=== PATIENT | male | born 1940 | race Caucasian/White ===

== ENCOUNTER 2018-03-30 16:48 | Emergency (ER) | payer MEDICARE, BC ==
--- NOTE | 2018-03-30 17:14 | EDM.PDOC ---
ED HPI GENERAL MEDICAL PROBLEM - General Stated Complaint: FELL Time Seen by Provider: 03/30/18 16:50 Source of Information: Reports: Patient History Limitations: Reports: No Limitations - History of Present Illness INITIAL COMMENTS - FREE TEXT/NARRATIVE: Patient comes into the emergency department with complaint of right rib pain. Patient sustained a fall prior to arrival. He states that he lost his balance on ice fell onto his right side landing on his ribs. He denies hitting any other part of his body. He states that he noted pain and discomfort right away on the right side. He denies having chest pain or shortness of breath, but does state it does hurt to take a deep breath. He denies any dizziness, lightheadedness, abdominal discomfort or loss of bowels. Has full range of motion and his right upper extremity and did not notices any bleeding or ecchymosis. Onset: Today, Sudden Location: Reports: Chest Quality: Reports: Ache, Throbbing Severity: Moderate Improves with: Reports: Rest Worsens with: Reports: Movement Context: Reports: Activity Associated Symptoms: Reports: No Other Symptoms Right Thoracic Pain Score (Numeric/FACES): 10 - Related Data Allergies Allergy/AdvReac Type Severity Reaction Status Date / Time Fjikqfq-Ija-Lwp Reductase Allergy Muscle Verified 03/30/18 17:19 Inhibitor Weakness atorvastatin AdvReac Muscle Verified 03/30/18 17:19 Weakness ezetimibe AdvReac Muscle Verified 03/30/18 17:19 Weakness rosuvastatin AdvReac Muscle Verified 03/30/18 17:19 Weakness Home Meds: Home Meds Metoprolol Tartrate 25 mg PO BID 05/30/13 [History] Aspirin [Halfprin] 81 mg PO DAILY 03/01/14 [History] Omeprazole [Prilosec] 20 mg PO DAILY 03/01/14 [History] NIFEdipine [Nifedipine ER] 30 mg PO DAILY 03/30/18 [History] Past Medical History Other HEENT History: eyelid drooping disease, Other Cardiovascular History: dyastolic dysfunction, Other Gastrointestinal History: hx colon polyps Other Genitourinary History: ed, Other Musculoskeletal History: bilat wrist fracture, Other Endocrine/Metabolic History: hyperglycemia, metabolic syndrome, ED ROS GENERAL - Review of Systems Review Of Systems: See Below Constitutional: Reports: No Symptoms HEENT: Reports: No Symptoms Respiratory: Reports: No Symptoms Cardiovascular: Reports: No Symptoms GI/Abdominal: Reports: No Symptoms Musculoskeletal: Reports: No Symptoms Skin: Reports: No Symptoms Neurological: Reports: No Symptoms ED EXAM, GENERAL - Physical Exam Exam: See Below Exam Limited By: No Limitations General Appearance: Alert, WD/WN, No Apparent Distress Eye Exam: Bilateral Eye: EOMI Head: Atraumatic, Normocephalic Neck: Normal Inspection, Supple, Non-Tender, Full Range of Motion Respiratory/Chest: No Respiratory Distress, Lungs Clear, Normal Breath Sounds, No Accessory Muscle Use, Chest Non-Tender, Other (pain upon palpation of the right lower ribs on the lateral aspect. No deformity, redness, or ecchymosis noted.) Cardiovascular: Normal Peripheral Pulses, Regular Rate, Rhythm Extremities: Normal Inspection, Normal Range of Motion, Non-Tender, Normal Capillary Refill Neurological: Alert, Oriented Psychiatric: Normal Affect, Normal Mood Skin Exam: Warm, Dry, Intact, Normal Color Course - Vital Signs Last Recorded V/S: Last Vital Signs Temp 36.4 C 03/30/18 16:55 Pulse 62 03/30/18 16:55 Resp 16 03/30/18 16:55 BP 195/99 H 03/30/18 16:55 Pulse Ox 99 03/30/18 16:55 Departure - Departure Time of Disposition: 17:51 Disposition: Home, Self-Care 01 Clinical Impression: Contusion of rib on right side Qualifiers: Encounter type: initial encounter Qualified Code(s): S20.211A - Contusion of right front wall of thorax, initial encounter - Discharge Information *PRESCRIPTION DRUG MONITORING PROGRAM REVIEWED*: Not Applicable *COPY OF PRESCRIPTION DRUG MONITORING REPORT IN PATIENT MIREYA: Not Applicable Instructions: Contusion, [id number], Rib Contusion Additional Instructions: 1. rest 2. Use ice to the area 3 times a day for 20 mins at a time 3. Use a pillow to splint if needing to cough 4. Try and take at least 10 deep breaths every hour to help reduce shallow breathing and retained CO2. 5. Can take OTC pain medications as needed 6. When trying to get up from they laying position roll on to the unaffected side and rise from there 7. Follow up as needed with PCP 8. Call with any questions and concerns - Assessment/Plan Assessment:: 1. Right side rib pain Plan: 1. xray completed in ER. Results reviewed with the patient. negative results 2. Pt educated on ice, rest, diet, splinting, OTC management, and follow up 3. Offered pain medication in the ER and pt declined. 4. Pt advised to call or return to the ER if symptoms worsen or if questions arise. 5. All questions and concerns answered prior to discharge.
[2018-03-30 17:25] VITALS: BP 195/99
--- NOTE | 2018-03-30 17:47 | CR ---
[id number] RAD/RAD Ribs Right W PA Chest Exam: RAD Ribs Right W PA Chest Clinical Data: TRAUMA COMPARISON: NO PREVIOUS SIMILAR EXAM IS AVAILABLE FINDINGS: No definite fracture line is seen. There is no pneumothorax. There is minimal pleural reaction at the right lung base. The cardiac silhouette is enlarged and there are median sternotomy sutures seen. IMPRESSION: NO DEFINITE FRACTURE IDENTIFIED. Pastor White MD 03/30/18 [id number] Thank you for allowing us to participate in the care of your patient.
== END 2018-03-30 17:55 | disposition home or self-care (01) ==
LOC: VM.ED 16:48
DX: S20.211A Contusion of right front wall of thorax, initial encounter (principal); Z88.8 Allergy status to other drugs, medicaments and biological substances; Z79.82 Long term (current) use of aspirin; Z79.899 Other long term (current) drug therapy; W00.0XXA Fall on same level due to ice and snow, initial encounter
CPT/HCPCS: 71100-RT; 99283

== ENCOUNTER 2021-12-05 10:06 | Emergency (ER) | payer MEDICARE, BC ==
[2021-12-05 11:05] VITALS: PULSE 58
[2021-12-05 11:06] LABS: CHLORIDE,CL 106 mmol/L (98-107); SODIUM,NA 141 mmol/L (136-145)
[2021-12-05 11:07] LABS: ANION GAP 14.6 mmol/L (5-15); ESTIMATED GFR 33 mL/min (>=60)
[2021-12-05] MEDS ORDERED: Nitroglycerin 2% Oint 1 GM UD Packet TOP ONE (11:52)
[2021-12-05 11:53] VITALS: BP 109/73
== END 2021-12-05 13:21 | disposition short-term general hospital (02) ==
LOC: VM.ED 10:06
DX: R07.89 Other chest pain (principal); I12.9 Hypertensive chronic kidney disease with stage 1 through stage 4 chronic kidney disease, or unspecified chronic kidney disease; N18.31 Chronic kidney disease, stage 3a; Z79.82 Long term (current) use of aspirin; Z79.02 Long term (current) use of antithrombotics/antiplatelets; Z88.8 Allergy status to other drugs, medicaments and biological substances; Z20.822 Contact with and (suspected) exposure to COVID-19
CPT/HCPCS: 36415; 80048; 84484; 85025; 85610; 93005; 93010; 99284; 99285; U0002

== ENCOUNTER 2021-12-22 16:46 | Emergency (ER) | payer MEDICARE, BC ==
[2021-12-22 16:58] VITALS: PULSE 55
[2021-12-22 17:24] VITALS: BP 134/74
== END 2021-12-22 17:30 | disposition home or self-care (01) ==
LOC: VM.ED 16:46
DX: R04.0 Epistaxis (principal); I10 Essential (primary) hypertension; Z95.1 Presence of aortocoronary bypass graft; Z88.8 Allergy status to other drugs, medicaments and biological substances; Z79.02 Long term (current) use of antithrombotics/antiplatelets; Z79.899 Other long term (current) drug therapy; Z79.82 Long term (current) use of aspirin
CPT/HCPCS: 30901; 99283

== ENCOUNTER 2022-04-15 22:11 | Emergency (ER) | payer MEDICARE, BC ==
[2022-04-15 22:54] VITALS: BP 164/91; PULSE 88
[2022-04-15 23:03] LABS: PTT,PARTIAL THROMBOPLSTIN TIME 24.1 SEC (20.5-30.9)
[2022-04-15] MEDS: Oxymetazoline 0.05% Nasal Spray 30 ML Bottle NAS ONE (23:14)
== END 2022-04-15 23:18 | disposition home or self-care (01) ==
LOC: VM.ED 22:11
DX: R04.0 Epistaxis (principal); I10 Essential (primary) hypertension; Z88.8 Allergy status to other drugs, medicaments and biological substances; Z79.82 Long term (current) use of aspirin; Z79.899 Other long term (current) drug therapy; Z79.02 Long term (current) use of antithrombotics/antiplatelets; Z95.1 Presence of aortocoronary bypass graft
CPT/HCPCS: 30901; 36415; 85025; 85610; 85730; 99283; A9270

== ENCOUNTER 2022-05-01 19:48 | Emergency (ER) | payer MEDICARE, BC ==
[2022-05-01] MEDS ORDERED: Oxymetazoline 0.05% Nasal Spray 30 ML Bottle NAS ONE (19:59)
[2022-05-01 20:14] VITALS: BP 136/80; PULSE 78
== END 2022-05-01 20:45 | disposition home or self-care (01) ==
LOC: VM.ED 19:48
DX: R04.0 Epistaxis (principal); I10 Essential (primary) hypertension; Z88.8 Allergy status to other drugs, medicaments and biological substances; Z79.02 Long term (current) use of antithrombotics/antiplatelets; Z79.82 Long term (current) use of aspirin; Z79.899 Other long term (current) drug therapy
CPT/HCPCS: 99283; A9270; 30901

== ENCOUNTER 2023-08-27 18:25 | Emergency (ER) | payer MEDICARE, BC ==
[2023-08-27] MEDS ORDERED: Sodium Chloride 0.9% 10 ML Syringe FLUSH PRN (18:38)
[2023-08-27 18:47] LABS: BASOPHILS PERCENT AUTO 0.4 % (0.2-1.2); EOSINOPHILS ABSOLUTE AUTO 0.2 x10^3/uL (0.0-0.5); EOSINOPHILS PERCENT AUTO 3.3 % (0.0-4.0); HEMATOCRIT 41.3 % (40.0-52.0); IMMATURE GRAN ABSOLUTE AUTO 0.04 x10^3/uL (0.00-0.07); LYMPHOCYTES ABSOLUTE AUTO 1.9 x10^3/uL (1.0-4.8); LYMPHOCYTES PERCENT AUTO 26.8 % (25.0-50.0); MEAN CORPUSCULAR HEMOGLOBIN 30.3 pg (26.0-32.0); MEAN CORPUSCULAR HGB CONC 33.9 g/dL (32.0-36.0); MEAN CORPUSCULAR VOLUME 89.4 fL (78.0-93.0); MONOCYTES PERCENT AUTO 13.9 % (2.0-11.0); NEUTROPHILS ABSOLUTE AUTO 3.8 x10^3/uL (1.8-7.7); PLATELET COUNT,PLT 171 x10^3/uL (130-400); RED BLOOD CELL COUNT 4.62 x10^6/uL (4.5-6.0); WHITE BLOOD CELL COUNT,WBC 6.9 x10^3/uL (4.0-10.0)
[2023-08-27] MEDS: hydrALAZINE 20 MG/ML SDV IVPUSH ONE (18:55)
[2023-08-27 19:02] LABS: PROTHROMBIN TIME 9.9 SEC (8.9-11.5)
[2023-08-27 19:16] LABS: A/G RATIO 1.26; ALBUMIN 3.9 g/dL (3.4-5.0); ANION GAP 14.6 mmol/L (5-15); BILIRUBIN TOTAL 1.9 mg/dL (0.2-1.0); CALCIUM 9.2 mg/dL (8.5-10.1); CREATININE 2.3 mg/dL (0.70-1.30); EST CRCL DRUG DOSING (CG) 21.19 mL/min; MAGNESIUM 1.9 mg/dL (1.8-2.4); POTASSIUM,K 4.6 mmol/L (3.5-5.1)
[2023-08-27 19:18] VITALS: PULSE 70
[2023-08-27 20:18] VITALS: BP 129/90
== END 2023-08-27 19:43 | disposition home or self-care (01) ==
LOC: VM.ED 18:25
DX: R07.89 Other chest pain (principal); I11.0 Hypertensive heart disease with heart failure; I50.9 Heart failure, unspecified; Z79.82 Long term (current) use of aspirin; Z79.899 Other long term (current) drug therapy; Z88.8 Allergy status to other drugs, medicaments and biological substances
CPT/HCPCS: 71045; 80053; 83735; 83880; 84484; 85025; 85610; 93005; 93010; 96374; 99284; 99285; J0360

== ENCOUNTER 2024-08-25 11:47 | Observation (INO) | payer MEDICARE, BC ==
[2024-08-25] MEDS: Lactated Ringers 1,000 ML IV ONE (12:00)
[2024-08-25 12:05] LABS: BASOPHILS ABSOLUTE AUTO 0.0 x10^3/uL (0.0-0.2); BASOPHILS PERCENT AUTO 0.2 % (0.2-1.2); EOSINOPHILS ABSOLUTE AUTO 0.2 x10^3/uL (0.0-0.5); EOSINOPHILS PERCENT AUTO 3.1 % (0.0-4.0); IMMATURE GRAN ABSOLUTE AUTO 0.05 x10^3/uL (0.00-0.07); IMMATURE GRAN PERCENT AUTO 0.80 % (0.00-0.43); LYMPHOCYTES ABSOLUTE AUTO 1.3 x10^3/uL (1.0-4.8); LYMPHOCYTES PERCENT AUTO 20.5 % (25.0-50.0); MONOCYTES ABSOLUTE AUTO 0.7 x10^3/uL (0.0-0.8); MONOCYTES PERCENT AUTO 10.6 % (2.0-11.0); NEUTROPHILS ABSOLUTE AUTO 4.1 x10^3/uL (1.8-7.7); NEUTROPHILS PERCENT AUTO 64.8 % (50.0-80.0); PLATELET COUNT,PLT 179 x10^3/uL (130-400); RED BLOOD CELL COUNT 5.02 x10^6/uL (4.5-6.0); WHITE BLOOD CELL COUNT,WBC 6.4 x10^3/uL (4.0-10.0)
[2024-08-25 12:24] LABS: INR 1.0 (0.9-1.1); PTT,PARTIAL THROMBOPLSTIN TIME 25.6 SEC (23.5-33.2)
[2024-08-25 12:29] LABS: A/G RATIO 1.19; ALANINE AMINOTRANSFERASE,ALT 15 U/L (16-63); ASPARTATE AMNIOTRANSFERASE,AST 16 U/L (15-37); BILIRUBIN TOTAL 2.0 mg/dL (0.2-1.0); BLOOD UREA NITROGEN,BUN 25 mg/dL (7-18); CARBON DIOXIDE,CO2 26 mmol/L (21-32); CHLORIDE,CL 104 mmol/L (98-107); CREATININE 2.0 mg/dL (0.70-1.30); GLUCOSE RANDOM 164 mg/dL (70-99); POTASSIUM,K 4.7 mmol/L (3.5-5.1); PROTEIN TOTAL,TP 7.0 g/dL (6.4-8.2); SODIUM,NA 140 mmol/L (136-145)
[2024-08-25 12:34] LABS: ESTIMATED GFR 32 mL/min (>=60)
[2024-08-25 12:50] LABS: TSH ULTRASENSITIVE 5.064 uIU/mL (0.358-3.74)
[2024-08-25] MEDS ORDERED: Ondansetron 4 MG/2 ML SDV IV PRN (15:01)
[2024-08-25] MEDS: hydrALAZINE 20 MG/ML SDV IVPUSH PRN (17:28)
[2024-08-26 06:51] LABS: PLATELET COUNT,PLT 181.0 x10^3/uL (130-400); RED BLOOD CELL COUNT 4.77 x10^6/uL (4.5-6.0); WHITE BLOOD CELL COUNT,WBC 7.2 x10^3/uL (4.0-10.0)
[2024-08-26 07:06] LABS: A/G RATIO 1.1; ALANINE AMINOTRANSFERASE,ALT 12.0 U/L (16-63); ASPARTATE AMNIOTRANSFERASE,AST 11.0 U/L (15-37); BILIRUBIN TOTAL 1.8 mg/dL (0.2-1.0); BLOOD UREA NITROGEN,BUN 25.0 mg/dL (7-18); CARBON DIOXIDE,CO2 27.0 mmol/L (21-32); CHLORIDE,CL 105.0 mmol/L (98-107); CREATININE 2.1 mg/dL (0.70-1.30); EST CRCL DRUG DOSING (CG) 23.61 mL/min; ESTIMATED GFR 30.0 mL/min (>=60); GLUCOSE RANDOM 142.0 mg/dL (70-99); POTASSIUM,K 4.6 mmol/L (3.5-5.1); PROTEIN TOTAL,TP 6.3 g/dL (6.4-8.2); SODIUM,NA 141.0 mmol/L (136-145)
[2024-08-26 17:13] VITALS: BP 153/71; PULSE 62
[2024-08-29 22:06] LABS: THYROXINE, TOTAL T4 6.93 ug/dL (4.50-11.70)
== END 2024-08-26 16:35 | disposition home or self-care (01) ==
LOC: VM.ED 11:47 → VM.MS 13:20
PROVIDERS: ADMIT Internal Medicine; ATTEND Internal Medicine
DX: H81.10 Benign paroxysmal vertigo, unspecified ear (principal); R26.81 Unsteadiness on feet; R53.1 Weakness; I16.0 Hypertensive urgency; I12.9 Hypertensive chronic kidney disease with stage 1 through stage 4 chronic kidney disease, or unspecified chronic kidney disease; E11.22 Type 2 diabetes mellitus with diabetic chronic kidney disease; N18.4 Chronic kidney disease, stage 4 (severe); I25.10 Atherosclerotic heart disease of native coronary artery without angina pectoris; Z95.1 Presence of aortocoronary bypass graft; Z79.82 Long term (current) use of aspirin; Z88.8 Allergy status to other drugs, medicaments and biological substances; Z79.899 Other long term (current) drug therapy; Z87.891 Personal history of nicotine dependence
CPT/HCPCS: 36415; 70450; 80053; 83735; 84436; 84443; 84484; 85025; 85027; 85610; 85730; 86140; 96375; 97161-GP; 99284; A9270-GY; G0378; J0360; J3360; J7120